=== PATIENT | female | born 1960 | race Caucasian/White ===

== ENCOUNTER 2024-09-22 13:51 | Emergency (ER) | payer OTHER, SELFPAY ==
[2024-09-22 14:07] VITALS: BP 150/80; PULSE 96; RESP 18; TEMP 36.3; O2SAT 100
--- NOTE | 2024-09-22 14:07 | ED_ITS ---
HPI - Skin/Abscess/Foreign Bdy General Chief complaint: Skin/Abscess/Foreign Body Stated complaint: ingrown hair in armpit Time Seen by Provider: 09/22/24 14:07 Source: patient Mode of arrival: ambulatory Limitations: no limitations History of Present Illness HPI narrative: 64-year-old female presents with complaint of draining wound to left armpit for 2 weeks. reports that infection ruptured on its own and has been draining a greenish-yellow pus for the past several days. Reports that the size of the infection has improved. Afebrile. Denies chills, body aches. Has been applying a large Band-Aid. Now having itching and burning, concern for adhesive reaction. Patient does state that she has sensitive skin. All systems reviewed and negative except as noted above. Related Data Home Medications Medication Instructions Recorded Confirmed famotidine 20 mg tablet 20 mg DIRECTED 10/04/19 09/22/24 methimazole 5 mg tablet 5 mg DIRECTED 10/04/19 09/22/24 omeprazole 40 mg capsule,delayed 40 mg DIRECTED 10/04/19 09/22/24 release Allergies Allergy/AdvReac Type Severity Reaction Status Date / Time Penicillins Allergy Intermediate Hives Verified 09/22/24 14:20 meperidine AdvReac Intermediate Vomiting Verified 09/22/24 14:20 Review of Systems Review of Systems: CONSTITUTIONAL: Denies fever, chills, or sweats. EYES: Denies visual changes, redness, or discharge. ENT: Denies rhinorrhea, congestion, sore throat, or otalgia. CARDIOVASCULAR: Denies chest pain, palpitations, or edema. RESPIRATORY: Denies cough or dyspnea. GASTROINTESTINAL: Denies abdominal pain, nausea, vomiting, or diarrhea. GENITOURINARY: Denies dysuria or hematuria. SKIN: Reports infection to left armpit with burning and itching, possible adhesive reaction MUSCULOSKELETAL: Denies back pain, joint pain, or myalgia. NEUROLOGIC: Denies headache, numbness, or weakness. PSYCHIATRIC: Denies anxiety or depression. All other systems reviewed are negative, except as documented in HPI. PMFSH Comments At time of signature, agree with nursing past medical, surgical, social and family history. There is no relevant family history pertinent to the presenting complaint. Exam Narrative: GENERAL: This is a well-nourished, well-developed patient, in no apparent distress. HEAD: normocephalic, atraumatic. EYES: PERRL. Sclera clear/white. Vision is grossly intact. EARS: External ears normal NOSE: External nose normal NECK: Neck supple, non-tender without lymphadenopathy, masses or thyromegaly. CARDIOVASCULAR: Regular rate and rhythm without murmurs, gallops, or rubs. RESPIRATORY: Clear to auscultation. Breath sounds equal bilaterally. No wheezes, rales, or rhonchi. SKIN: warm, Dry, intact with no suspicious lesions, good texture and turgor. erythematous abscess to left axilla approximately 2 x 3 cm diameter with yellowish purulent drainage. Erythema surrounding abscess concerning for allergic dermatitis. NEURO: awake, alert, and oriented to person, place and time. There were no obvious focal neurologic abnormalities. EXTREMITIES: No joint tenderness, effusion, or edema noted. Course Course Level of Care: Express Care Visit Vital Signs Vital signs: Reviewed MDM - Skin/Abscess/Foreign Bdy MDM Narrative Medical decision making narrative: wound culture ordered. Will prescribe clindamycin to treat draining abscess. Will prescribe triamcinolone to treat allergic dermatitis. Patient is well- appearing, nontoxic. Patient is aware of diagnosis, understands and agrees to treatment plan. Anticipatory guidance given. Patient agrees to follow-up as directed and is aware of reasons to seek care at the emergency department. Portions of this record may have been created with voice recognition software Discharge Plan Discharge Clinical Impression: Abscess of axilla, left Patient Disposition: Home, Self-Care Condition: Stable Instructions: Antibiotic Form, Abscess (ED) Additional Instructions: Take antibiotic as prescribed until gone. Apply steroid cream went to erythema surrounding abscess from adhesive reaction. Keep clean and dry. Wash with soap and water. Apply a warm compress 4 times a day for 15 minutes and gently massage. Follow-up your primary care physician if not improving. Prescriptions: New clindamycin HCl 300 mg capsule 300 mg PO QID 7 Days Qty: 28 0RF triamcinolone acetonide 0.1 % cream 1 applic topical BID PRN (Reason: allergic reaction) Qty: 15 0RF No Action omeprazole 40 mg capsule,delayed release(DR/EC) 40 mg DIRECTED famotidine 20 mg tablet 20 mg DIRECTED methimazole 5 mg tablet 5 mg DIRECTED Follow-up/Referrals: Glenna,Johann Parks MD [Primary Care Provider] - Time of Disposition: 14:20
== END 2024-09-22 14:25 | disposition home or self-care (01) ==
PROVIDERS: Emergency Provider Nurse Practitioner Family; PCP Family Medicine
DX: L02.412 Cutaneous abscess of left axilla (principal); K21.9 Gastro-esophageal reflux disease without esophagitis
CPT/HCPCS: 87070; 87075; 87181; 87205; 99213; G0463

== ENCOUNTER 2025-10-24 08:43 | Emergency (ER) | payer MEDICARE, SELFPAY ==
[2025-10-24 09:07] VITALS: BP 172/84; PULSE 97; RESP 16; TEMP 36.6; O2SAT 100
--- NOTE | 2025-10-24 09:59 | ED.URI ---
HPI - URI/Sore Throat General Chief Complaint: Upper Respiratory Infection Stated Complaint: Cold Symptoms Time Seen by Provider: 10/24/25 09:53 Source: patient and RN notes reviewed Mode of arrival: ambulatory Limitations: no limitations History of Present Illness HPI Narrative: 65-year-old female patient presents today complaining of a 2 day history of cough, rhinorrhea, fever, sore throat due to coughing. She is currently pain-free and has been taking Qing with occasional Benadryl. Her grandson lives with her was diagnosed with influenza a 4 days ago. Related Data Home Medications ?Medication ?Instructions ?Recorded ?Confirmed ?Last Taken ?Type famotidine 20 mg tablet 20 mg PO DIRECTED 10/04/19 10/24/25 Unknown History methimazole 5 mg tablet 5 mg PO DIRECTED 10/04/19 10/24/25 Unknown History anagrelide 0.5 mg capsule 0.5 mg PO Q12H 10/24/25 10/24/25 Unknown History lisinopril 5 mg tablet 5 mg PO DAILY 10/24/25 10/24/25 Unknown History metformin 500 mg tablet 1,000 mg PO BID 10/24/25 10/24/25 Unknown History Allergies Allergy/AdvReac Type Severity Reaction Status Date / Time Penicillins Allergy Intermediate Hives Verified 10/24/25 08:59 meperidine AdvReac Intermediate Vomiting Verified 10/24/25 08:59 PMFSH Past Medical History Medical History (Updated 10/24/25 @ 10:03 by Lisa Álvarez, [employer], [employer]) Hyperthyroidism Hypertension GERD (gastroesophageal reflux disease) Comments At time of signature, I have reviewed and agree with nursing past medical, surgical, social and family history unless otherwise noted. Please see nursing chart for further information. There is no relevant family history pertinent to the presenting complaint Exam Narrative: GENERAL: Ill-appearing, well-nourished, and in no acute distress. HEAD: Normocephalic, atraumatic. EYES: EOMI. No redness or drainage. Conjunctivae normal. ENT: Mucous membranes pink and moist. Nares congestion with rhinorrhea. TMs normal bilaterally. Throat normal. Uvula midline. NECK: Normal AROM. Supple. No lymphadenopathy. CHEST: No respiratory distress. Clear to auscultation. HEART: Regular rate and rhythm. No murmur appreciated. EXTREMITIES: Normal range of motion. No edema. SKIN: Warm, dry, no rash. Capillary refill normal. Normal skin turgor. NEURO: No focal deficits. Alert and oriented x3. Gait steady. PSYCH: Normal affect. No signs of depression or anxiety. Course Course Level of Care: Express Care Visit Vital Signs Vital signs: Vital Signs Temperature 98 F 10/24/25 09:07 Pulse Rate 97 10/24/25 09:07 Respiratory Rate 16 10/24/25 09:07 Blood Pressure 172/84 H 10/24/25 09:07 Pulse Oximetry 100 10/24/25 09:07 Temperature 98 F 10/24/25 09:07 Pulse Rate 97 10/24/25 09:07 Respiratory Rate 16 10/24/25 09:07 Blood Pressure 172/84 H 10/24/25 09:07 Pulse Oximetry 100 10/24/25 09:07 [address] [facility] MDM Narrative Medical decision making narrative: 65-year-old female patient presents today complaining of a 2 day history of cough, rhinorrhea, fever, sore throat due to coughing. She is currently pain-free and has been taking Qing with occasional Benadryl. Her grandson lives with her was diagnosed with influenza a 4 days ago. Upon exam, patient is ill-appearing some nasal congestion, rhinorrhea. Influenza and COVID-19 test negative. Due to patient's exposure close contact with her grandson that is positive for influenza, patient's influenza test is likely false negative. Will treat with Tamiflu. Patient would also like some Tessalon Perles for her cough. Patient agrees with plan. Vital signs stable with mildly elevated blood pressure. Anticipatory guidance given. Differential Diagnosis Differential Diagnosis: Influenza, COVID-19, URI, bronchitis, pneumonia Lab Data [facility] Lab Attestation statement: I personally reviewed the patient's lab results. Lab results narrative: COVID-19 negative, influenza negative Critical Care Time Critical Care Time Critical Care Time: No Discharge Plan Discharge Clinical Impression: Viral infection, Exposure to influenza Patient Disposition: Home Condition: Stable Instructions: Influenza (DC) Additional Instructions: Take the Tamiflu and Tessalon Perles as directed. Rest and stay hydrated. Follow-up with your PCP in 1 week if symptoms are not improving. Go to the ER immediately if symptoms worsen to include shortness of chest pain persistent fever. Patient Language: Yoruba Prescriptions: New benzonatate 200 mg capsule 200 mg PO TID PRN (Reason: cough) Qty: 20 0RF oseltamivir [Tamiflu] 75 mg capsule 75 mg PO Q12H 5 Days Qty: 10 0RF No Action famotidine 20 mg tablet 20 mg PO DIRECTED methimazole 5 mg tablet 5 mg PO DIRECTED anagrelide 0.5 mg capsule 0.5 mg PO Q12H metformin 500 mg tablet 1,000 mg PO BID lisinopril 5 mg tablet 5 mg PO DAILY Follow-up/Referrals: PHYSICIAN,REJOINER [Primary Care Provider, Internal Medicine] Time of Disposition: 10:04
[2025-10-24 10:02] LABS: EDCOVIDSCREEN Negative (Negative); EDINFLUASCREEN Negative (Negative); EDINFLUBSCREEN Negative (Negative)
== END 2025-10-24 10:06 | disposition home or self-care (01) ==
PROVIDERS: Emergency Provider Nurse Practitioner
DX: B34.9 Viral infection, unspecified (principal); Z20.828 Contact with and (suspected) exposure to other viral communicable diseases; I10 Essential (primary) hypertension; E05.90 Thyrotoxicosis, unspecified without thyrotoxic crisis or storm; K21.9 Gastro-esophageal reflux disease without esophagitis
CPT/HCPCS: 87426; 87804; 99213; G0463